=== PATIENT | male | born 1970 | race African-American/Black ===

== ENCOUNTER 2020-04-19 15:38 | Emergency (ER) | payer OTHER ==
[~2020-04-19] VITALS: Ht 175.3 cm; Wt 84.8 kg
[2020-04-19] MEDS ORDERED: LISINOPRIL2.5 MG PO (15:54)
[2020-04-19] MEDS ORDERED: TOPROL XL100 MG PO (15:55)
[2020-04-19 16:50] LABS: ABSOLUTE NEUTROPHILS 4.7 thou/uL (1.4-8.2); BASOPHILS 0.6 % (0.0-2.0); EOSINOPHILS 2.7 % (0.0-3.0); HEMATOCRIT 40.8 % (42.0-52.0); HEMOGLOBIN 14.1 gm/dL (14.0-18.0); LYMPHOCYTES 21.8 % (24.0-44.0); MCH 33.6 pg (26.0-34.0); MCHC 34.6 g/dL (28.0-37.0); MONOCYTES 8.2 % (1.0-8.0); PLATELET COUNT 258 thou/uL (150-400); POLYS 66.7 % (36.0-66.0); RBC 4.21 mil/uL (4.50-6.00); RDW 13.9 % (10.5-14.5); WBC 7.1 thou/uL (4.0-11.0)
[2020-04-19 16:56] LABS: CALCIUM 8.8 mg/dL (8.5-10.1); CREATININE 1.1 mg/dL (0.7-1.3); POTASSIUM 3.8 mmol/L (3.5-5.1)
[2020-04-19 17:02] LABS: ALBUMIN 3.6 g/dL (3.4-5.0); TOTAL BILIRUBIN 0.3 mg/dL (0.2-1.0); TOTAL PROTEIN 6.8 g/dL (6.4-8.2)
[2020-04-19] MEDS ORDERED: NORCO 5-325 TA1 EAC2 PO (19:33)
[2020-04-19] MEDS ORDERED: CLEOCIN HCL150 MG PO (19:33)
[2020-04-19 20:20] VITALS: BP 142/89
== END 2020-04-19 20:20 | disposition home or self-care (01) ==
LOC: ER 15:38
PROVIDERS: Physician Assistant
DX: L03.211 Cellulitis of face (principal); K04.7 Periapical abscess without sinus; L73.9 Follicular disorder, unspecified; I10 Essential (primary) hypertension; F17.210 Nicotine dependence, cigarettes, uncomplicated; Z88.1 Allergy status to other antibiotic agents; Z90.49 Acquired absence of other specified parts of digestive tract; Z79.899 Other long term (current) drug therapy

== ENCOUNTER 2020-05-02 19:13 | Emergency (ER) | payer OTHER ==
[~2020-05-02] VITALS: Ht 175.3 cm; Wt 88.0 kg
[~2020-05-02 19:13] MED LIST: CLEOCIN HCL150 MG PO; LISINOPRIL2.5 MG PO; NORCO 5-325 TA1 EAC2 PO; TOPROL XL100 MG PO
[2020-05-02 20:03] LABS: BASOPHILS 0.8 % (0.0-2.0); CALCIUM 8.8 mg/dL (8.5-10.1); CREATININE 1.1 mg/dL (0.7-1.3); HEMATOCRIT 44.1 % (42.0-52.0); LYMPHOCYTES 37.3 % (24.0-44.0); MCH 33.5 pg (26.0-34.0); MCV 98.4 fL (80.0-100.0); MONOCYTES 9.2 % (1.0-8.0); PLATELET COUNT 237 thou/uL (150-400); POLYS 49.7 % (36.0-66.0); POTASSIUM 3.7 mmol/L (3.5-5.1); RBC 4.48 mil/uL (4.50-6.00); RDW 14.9 % (10.5-14.5)
[2020-05-02 20:10] LABS: TOTAL BILIRUBIN 0.5 mg/dL (0.2-1.0); TOTAL PROTEIN 7.5 g/dL (6.4-8.2)
[2020-05-02 21:15] LABS: URINE BILIRUBIN NEGATIVE (Negative); URINE BLOOD NEGATIVE (Negative); URINE CLARITY CLEAR; URINE COLOR YELLOW; URINE GLUCOSE-RANDOM* NEGATIVE (Negative); URINE KETONES NEGATIVE (Negative); URINE LEUKOCYTES-REFLEX NEGATIVE (Negative); URINE NITRITE-REFLEX NEGATIVE (Negative); URINE PROTEIN (DIPSTICK) NEGATIVE (Negative); URINE SPECIFIC GRAVITY 1.025 (1.005-1.035); URINE UROBILINOGEN 0.2 E.U./dl (0.2-1.0)
[2020-05-02 23:38] VITALS: BP 182/108
== END 2020-05-02 23:39 | disposition home or self-care (01) ==
LOC: ER 19:13
PROVIDERS: Emergency Medicine
DX: K40.90 Unilateral inguinal hernia, without obstruction or gangrene, not specified as recurrent (principal); I10 Essential (primary) hypertension; Z90.49 Acquired absence of other specified parts of digestive tract; Z79.2 Long term (current) use of antibiotics; Z79.899 Other long term (current) drug therapy; Z88.1 Allergy status to other antibiotic agents

== ENCOUNTER 2020-05-10 21:21 | Emergency (ER) | payer OTHER ==
[~2020-05-10] VITALS: Ht 175.3 cm; Wt 88.0 kg
[2020-05-10 22:54] LABS: ABSOLUTE NEUTROPHILS 2.6 thou/uL (1.4-8.2); BASOPHILS 0.4 % (0.0-2.0); EOSINOPHILS 4.3 % (0.0-3.0); HEMATOCRIT 42.4 % (42.0-52.0); HEMOGLOBIN 14.2 gm/dL (14.0-18.0); LYMPHOCYTES 36.3 % (24.0-44.0); MCH 33.1 pg (26.0-34.0); MCHC 33.6 g/dL (28.0-37.0); MCV 98.7 fL (80.0-100.0); MONOCYTES 9.8 % (1.0-8.0); PLATELET COUNT 229 thou/uL (150-400); POLYS 49.2 % (36.0-66.0); RBC 4.29 mil/uL (4.50-6.00); RDW 14.7 % (10.5-14.5); WBC 5.2 thou/uL (4.0-11.0)
[2020-05-10 22:58] LABS: CALCIUM 8.8 mg/dL (8.5-10.1); CREATININE 1.3 mg/dL (0.7-1.3)
[2020-05-10 23:04] LABS: ALBUMIN 3.7 g/dL (3.4-5.0); TOTAL BILIRUBIN 0.3 mg/dL (0.2-1.0); TOTAL PROTEIN 6.9 g/dL (6.4-8.2)
[2020-05-10 23:05] LABS: URINE BILIRUBIN NEGATIVE (Negative); URINE BLOOD NEGATIVE (Negative); URINE CLARITY CLEAR; URINE COLOR YELLOW; URINE GLUCOSE-RANDOM* NEGATIVE (Negative); URINE KETONES NEGATIVE (Negative); URINE LEUKOCYTES-REFLEX NEGATIVE (Negative); URINE NITRITE-REFLEX NEGATIVE (Negative); URINE PROTEIN (DIPSTICK) NEGATIVE (Negative); URINE UROBILINOGEN 0.2 E.U./dl (0.2-1.0)
[2020-05-11] MEDS ORDERED: COLACE100 MG PO (00:59)
[2020-05-11 01:07] VITALS: BP 150/93
== END 2020-05-11 01:08 | disposition home or self-care (01) ==
LOC: ER 21:21
PROVIDERS: Emergency Medicine
DX: K59.00 Constipation, unspecified (principal); I10 Essential (primary) hypertension; F17.210 Nicotine dependence, cigarettes, uncomplicated; Z90.49 Acquired absence of other specified parts of digestive tract; Z79.899 Other long term (current) drug therapy; Z88.1 Allergy status to other antibiotic agents

== ENCOUNTER 2020-06-14 17:51 | Emergency (ER) | payer OTHER ==
[~2020-06-14] VITALS: Ht 175.3 cm; Wt 78.9 kg
[~2020-06-14 17:51] MED LIST changes: +COLACE100 MG PO
[2020-06-14 19:50] LABS: URINE BILIRUBIN NEGATIVE (Negative); URINE BLOOD TRACE (Negative); URINE CLARITY CLEAR; URINE COLOR YELLOW; URINE GLUCOSE-RANDOM* NEGATIVE (Negative); URINE KETONES NEGATIVE (Negative); URINE LEUKOCYTES-REFLEX NEGATIVE (Negative); URINE NITRITE-REFLEX NEGATIVE (Negative); URINE PROTEIN (DIPSTICK) NEGATIVE (Negative); URINE SPECIFIC GRAVITY <= 1.005 (1.005-1.035); URINE UROBILINOGEN 0.2 E.U./dl (0.2-1.0)
[2020-06-14 19:53] LABS: ABSOLUTE NEUTROPHILS 4.1 thou/uL (1.4-8.2); BASOPHILS 0.7 % (0.0-2.0); HEMATOCRIT 42.6 % (42.0-52.0); HEMOGLOBIN 14.4 gm/dL (14.0-18.0); LYMPHOCYTES 30.4 % (24.0-44.0); MCH 33.2 pg (26.0-34.0); MCHC 33.9 g/dL (28.0-37.0); MCV 97.8 fL (80.0-100.0); MONOCYTES 8.6 % (1.0-8.0); PLATELET COUNT 267 thou/uL (150-400); POLYS 57.3 % (36.0-66.0); RBC 4.36 mil/uL (4.50-6.00); RDW 14.2 % (10.5-14.5); WBC 7.1 thou/uL (4.0-11.0)
[2020-06-14 19:56] LABS: CALCIUM 9.2 mg/dL (8.5-10.1); CREATININE 1.1 mg/dL (0.7-1.3); POTASSIUM 3.9 mmol/L (3.5-5.1)
[2020-06-14 20:02] LABS: ALBUMIN 3.9 g/dL (3.4-5.0); TOTAL BILIRUBIN 0.3 mg/dL (0.2-1.0); TOTAL PROTEIN 7.4 g/dL (6.4-8.2)
[2020-06-14 21:28] VITALS: BP 131/59
== END 2020-06-14 21:28 | disposition home or self-care (01) ==
LOC: ER 17:51
PROVIDERS: Emergency Medicine
DX: R10.31 Right lower quadrant pain (principal); I10 Essential (primary) hypertension; F17.210 Nicotine dependence, cigarettes, uncomplicated; Z98.890 Other specified postprocedural states; Z90.49 Acquired absence of other specified parts of digestive tract; Z79.899 Other long term (current) drug therapy; Z88.1 Allergy status to other antibiotic agents

== ENCOUNTER 2020-11-28 05:22 | Emergency (ER) | payer OTHER ==
[~2020-11-28] VITALS: Ht 175.3 cm; Wt 90.7 kg
[2020-11-28] MEDS ORDERED: MELOXICAM15 MG PO (05:32)
[2020-11-28] MEDS ORDERED: NEURONTIN 300M300 M2 PO (05:32)
[2020-11-28 05:48] LABS: URINE BILIRUBIN NEGATIVE (Negative); URINE BLOOD NEGATIVE (Negative); URINE CLARITY CLEAR; URINE COLOR YELLOW; URINE GLUCOSE-RANDOM* NEGATIVE (Negative); URINE KETONES NEGATIVE (Negative); URINE LEUKOCYTES-REFLEX NEGATIVE (Negative); URINE NITRITE-REFLEX NEGATIVE (Negative); URINE PROTEIN (DIPSTICK) NEGATIVE (Negative); URINE SPECIFIC GRAVITY >= 1.030 (1.005-1.035); URINE UROBILINOGEN 0.2 E.U./dl (0.2-1.0)
[2020-11-28 09:05] LABS: ABSOLUTE NEUTROPHILS 2.9 thou/uL (1.4-8.2); BASOPHILS 0.6 % (0.0-2.0); EOSINOPHILS 4.1 % (0.0-3.0); HEMATOCRIT 43.7 % (42.0-52.0); HEMOGLOBIN 14.7 gm/dL (14.0-18.0); LYMPHOCYTES 31.8 % (24.0-44.0); MCH 33.4 pg (26.0-34.0); MCHC 33.6 g/dL (28.0-37.0); MCV 99.3 fL (80.0-100.0); MONOCYTES 7.9 % (1.0-8.0); PLATELET COUNT 209 thou/uL (150-400); POLYS 55.6 % (36.0-66.0); RDW 14.3 % (10.5-14.5); WBC 5.2 thou/uL (4.0-11.0)
[2020-11-28 09:14] LABS: CALCIUM 8.5 mg/dL (8.5-10.1); POTASSIUM 4.1 mmol/L (3.5-5.1)
[2020-11-28 09:20] LABS: ALBUMIN 3.4 g/dL (3.4-5.0); TOTAL BILIRUBIN 0.4 mg/dL (0.2-1.0); TOTAL PROTEIN 6.5 g/dL (6.4-8.2)
[2020-11-28] MEDS ORDERED: IBUPROFEN 800800 M1 PO (09:54)
[2020-11-28] MEDS ORDERED: LEVAQUIN 500 M500 MG PO (09:54)
[2020-11-28 10:28] VITALS: BP 158/96
== END 2020-11-28 10:28 | disposition home or self-care (01) ==
LOC: ER 05:22
PROVIDERS: Emergency Medicine
DX: I86.1 Scrotal varices (principal); I10 Essential (primary) hypertension; F17.210 Nicotine dependence, cigarettes, uncomplicated; Z90.49 Acquired absence of other specified parts of digestive tract; Z98.890 Other specified postprocedural states; Z88.1 Allergy status to other antibiotic agents